=== PATIENT | female | born 1990 | race Caucasian/White ===

== ENCOUNTER 2019-03-08 12:15 | Emergency (ER) | payer MEDICAID, SELFPAY ==
--- NOTE | 2019-03-08 12:17 | NUR.NOTE ---
Nursing Note: pt states that her right food was stepped on by a cow on Friday morning. pt states that she limped it off at first and figured it would slowly get better however the pain has progressed. no notable swelling no bruising but increasing pain level PT can now only wear sandals that place no pressure on foot pain is localized to the first metatarsal
[2019-03-08 12:21] VITALS: BP 132/83; PULSE 80; RESP 16; TEMP 36.9; O2SAT 98
--- NOTE | 2019-03-08 12:25 | ED.GENADUL_ITS ---
Discharge Plan Disposition Patient Disposition: HOME Condition: Stable Discharge Details Chief Complaint: Orthopedic Clinical Impression: Foot injury Primary Care Provider: Ade Kerns ED Provider: Elba Engle Home Meds and New Rx's Prescriptions: Continued sertraline [Zoloft] 50 mg Tablet 50 mg PO DAILY RF: 0 Discharge Instructions Instructions: Contusion in Adults (ED) Additional Instructions: Please return immediately to the emergency department if you develop any new or worsening symptoms or if you become otherwise concerned. It is extremely important that you call as soon as possible to make an appointment to be seen in follow-up for this visit by your primary care doctor. Referrals: Ade Kerns [Primary Care Provider] - Discharge Data Discharge Date/Time-TO BE ENTERED AT DEPARTURE: 03/08/19 14:23 Medical Decision Making Nai Butler is a 29-year-old woman with a history of anxiety/depression who presented to the emergency department with 2 days of right foot pain after getting stepped on by a cow. On exam patient is very well and nontoxic appearing. She is able to range her toes, although has pain in her first toe with this. Tenderness over the first metatarsal of the right foot. Patient with full painless range of motion of the right ankle, right ankle nontender to palpation. Right heel nontender to palpation. Right lower leg is nontender to palpation. Good cap refill. Motor/sensation intact throughout the right foot. No edema of either extremity. Concern for fracture versus soft tissue injury. Exam/history is not consistent with DVT, bacterial infection, other acute emergent life/limb threatening illness. Plan for x-rays, ibuprofen. xrays negative. Plan for walking boot as patient with significant discomfort in normal footwear. Patient trialed walking boot in the emergency department with significant improvement in pain. I did correctional classification counselor the patient that she should use crutches and be weightbearing as tolerated until her symptoms improve or until she is seen in follow-up, patient states that she has crutches at home and will use them as needed. I had a lengthy discussion with the patient regarding return to emergency department precautions, importance of outpatient follow-up, home care. Patient verbalized understanding the plan was amenable. All questions were answered. Patient was discharged home with clear plan for outpatient follow-up. Medical Records Medical records reviewed: Yes I reviewed the patient's medical records. Imaging Data Radiologic Study: Attestation: I personally reviewed and interpreted this imaging study as follows: Radiologist's impression: RIGHT FOOT: Three views. No acute fracture or dislocation is seen. No radiopaque foreign bodies are seen in the soft tissues. IMPRESSION: No acute abnormality. HPI General Mode of arrival: ambulatory . Date/Time Provider Initiated Documentation: 03/08/19 12:25 . Limitations to Documentation: no limitations . Information obtained by: patient, RN notes reviewed and old records reviewed . HPI Narrative: Nai Butler is a 29-year-old woman with history of anxiety/depression presenting to the emergency department with foot pain. Patient reports that 2 days ago her right foot was stepped on by a cow. She has had pain in her right foot since that time. She denies any other injury or pain, also denies fevers shortness of breath/cough, vomiting/diarrhea, numbness/tingling/weakness, skin wound. Patient reports that she has been able to walk and bear weight while wearing cushioned sandals, but has not been able to bear weight while barefoot or wearing her usual work boots. Patient reports pain is over the medial top of her right foot. Feels otherwise well and in her usual state of health. Related Data Home Medications Medication Instructions Recorded Confirmed sertraline [Zoloft] 50 mg PO DAILY 03/08/19 03/08/19 Allergies Allergy/AdvReac Type Severity Reaction Status Date / Time venom-honey bee Allergy Unknown SWELLING,HI Unverified 03/08/19 12:24 VES General Stated Complaint: Orthopedic FRANCESCA: 3 Review of Systems Review of Systems Constitutional: denies fevers Eyes: denies eye pain ENT: denies facial pain, dental pain, sore throat Cardiovascular: denies chest pain, edema Respiratory: denies SOB, cough GI: denies abdominal pain, vomiting, diarrhea : denies flank pain MSK: denies back pain, neck pain, arthralgias, reports right foot pain Skin: denies rash Neuro: denies headaches, numbness, weakness PFSH Medical History Anxiety History of depression Migraine without aura Social History Smoking/Tobacco Use Status: Never Alcohol Intake: current Alcohol Intake frequency: a few times a month Alcohol type: beer and wine Drug use: Never Substance use type: does not use Do you feel safe at home: Yes Do you feel safe in your relationship?: Yes Exam Narrative Exam Narrative: Constitutional: well and [id number], pleasant, conversing normally HENT: head atraumatic/normocephalic/normal inspection, mucous membranes moist Eyes: conjunctiva normal, sclera normal, pupils 3mm b/l Neck: no stridor, normal ROM, trachea midline Resp: normal work of breathing Cardio: normal rate, normal rhythm Skin: warm, dry, normal color, no rash Neuro: alert, not altered, grossly non-focal, normal tone Ext: no edema, right foot TTP across dorsal aspect, worse over 1st MT, no overlying skin changes or wounds, right ankle with full painless ROM, normal ROM of right toes, no TTP of the right lower leg, brisk cap refill of right toes with normal sensation of the right foot throughout, normal exam of the left foot and lower leg. DP pulses intact and symmetric. Psych: normal mood, normal affect, normal behavior Course Vital Signs Temperature 36.9 C 03/08/19 12:21 Pulse 80 03/08/19 12:21 Respiratory Rate 16 03/08/19 12:21 Blood Pressure 132/83 03/08/19 12:21 Pulse Oximetry 98 03/08/19 12:21 Temperature 36.9 C 03/08/19 12:21 Temperature Source Tympanic 03/08/19 12:21 Pulse 80 03/08/19 12:21 Respiratory Rate 16 03/08/19 12:21 Blood Pressure 132/83 03/08/19 12:21 Blood Pressure Position Sitting 03/08/19 12:21 Pulse Oximetry 98 03/08/19 12:21 Oxygen Delivery Method Room Air 03/08/19 12:21 Oxygen Flow Rate 0 03/08/19 12:21 Pain Level 4 03/08/19 12:21
--- NOTE | 2019-03-08 12:31 | DI.RAD_ITS ---
SYMPTOMS/DIAGNOSIS: TRAUMA, PAIN OVER 1ST METATARSAL RIGHT FOOT: Three views. No acute fracture or dislocation is seen. No radiopaque foreign bodies are seen in the soft tissues. IMPRESSION: No acute abnormality.
[2019-03-08] MEDS: Ibuprofen 600 MG TAB (12:47)
[2019-03-08 13:40] VITALS: BP 132/83; PULSE 80; RESP 16; TEMP 36.9; O2SAT 98
== END 2019-03-08 14:23 | disposition home or self-care (01) ==
LOC: ER 13:42
PROVIDERS: Emergency Provider Student in an Organized Health Care Education/Training Program; PCP Nurse Practitioner
DX: S90.31XA Contusion of right foot, initial encounter (principal); W55.29XA Other contact with cow, initial encounter
CPT/HCPCS: 29515; 99283; 73630; L4361

== ENCOUNTER 2020-12-18 12:18 | Outpatient (REF) | payer MEDICAID, SELFPAY ==
--- NOTE | 2020-12-18 11:30 | PAPFT_PTH ---
PATIENT: Nai Butler LOC: [facility] U#:[id number] AGE/SX: 30/F ROOM: RE12/18/[address]: Cece Chan : 1990 BED: DIS: 12/18/2020 SPEC #: [id number] RECD: 12/19/20 12:59 STATUS: CLARENCE REDaysi #: [id number] JULIOCESAR: 12/18/20 11:[address]: Cece Chan DEPT: [facility] Cytology RECD BY: Maricel Juan ENTERED: 12/19/20 12:59 SP TYPE: PAPFT SARAHR DR: Ade Kerns Tissues: 1 - CX/ENDOCX FOR PAP SMEARS Procedures: PAP THIN PREP/UVM Screening HPV DNA PROBE Comments: [id number]
[2020-12-18 21:23] LABS: Abs Immature Grans 0.02 10^3/uL (0.0-0.06); Absolute Basophil Count 0.08 10^3/uL (0.0-0.2); Absolute Eosinophil Count 0.17 10^3/uL (0.0-0.7); Absolute Lymphocyte Count 3.34 10^3/uL (1.2-3.4); Absolute Monocyte Count 0.57 10^3/uL (0.1-0.8); Absolute Neutrophil Count 4.03 10^3/uL (1.2-6.7); Eosinophils % 2.1; HCT 38.7 % (36.0-46.0); HGB 13.1 g/dL (11.2-15.7); Immature Grans % 0.2; Lymphocytes % 40.7; MCH 29.5 pg (27.0-33.0); MCHC 33.9 % (32.0-36.0); MCV 87.2 fL (80-95); Monocytes % 6.9; Neutrophils % 49.1; Nucleated RBC 0 %; Platelet Count 344 10^3/uL (130-400); RBC 4.44 10^6/uL (3.93-5.22); RDW 11.9 % (11.7-14.6); RDW-SD 38.1 fL; WBC 8.21 10^3/uL (4.4-10.8)
[2020-12-18 21:34] LABS: Iron 109 ug/dL (50-170); Total Iron Binding Capacity 320 ug/dL (250-450); Transferrin Sat 34 % (15-50)
[2020-12-18 21:46] LABS: TSH (W/Ref FT4) 0.72 uIU/mL (0.36-3.74)
== END 2020-12-18 12:19 | disposition home or self-care (01) ==
LOC: NCHCN 12:18
PROVIDERS: PCP Nurse Practitioner; Visit Provider Nurse Practitioner Family
DX: M25.552 Pain in left hip (principal); R51.9 Headache, unspecified; N94.6 Dysmenorrhea, unspecified; K30 Functional dyspepsia; E66.3 Overweight; Z12.4 Encounter for screening for malignant neoplasm of cervix; Z01.419 Encounter for gynecological examination (general) (routine) without abnormal findings; Z11.51 Encounter for screening for human papillomavirus (HPV)
CPT/HCPCS: 88142; 83540; 83550; 84443; 85025; 87624

== ENCOUNTER → 2022-04-02 00:44 | Outpatient (CLI) | payer MEDICAID, SELFPAY ==
--- NOTE | 2022-04-02 12:15 | DI.MRI_ITS ---
Exam(s) MR BRAIN WO/W EXAM: MR BRAIN WO/W CLINICAL HISTORY: HEADACHE, R51. TECHNIQUE: Multiplanar multisequence MRI of the brain was performed. CONTRAST MATERIAL: IV Contrast: 15 ML of Dotarem contrast administered. COMPARISON: No exams were available for comparison FINDINGS: VENTRICLES AND EXTRA AXIAL SPACES: Normal in size and morphology for the patient's age. HEMORRHAGE: None. CEREBRAL PARENCHYMA: No focus of restricted diffusion to suggest acute infarct. No space-occupying le stveen identified. MIDLINE SHIFT: None. BRAINSTEM/CEREBELLUM: Normal. Orbits and pituitary: Unremarkable. ENHANCEMENT: No suspicious enhancement identified. VISUALIZED PARANASAL SINUSES/MASTOIDS: Clear. OTHER FINDINGS: None. IMPRESSION: Unremarkable MRI of the brain. DATA REPOSITORY:
[2022-04-02] MEDS: Normal Saline Flush 10 ML SYR IVP (12:19)
== END ==
PROVIDERS: PCP Nurse Practitioner; Visit Provider Nurse Practitioner Family
DX: R51.9 Headache, unspecified (principal)
CPT/HCPCS: 70553

== ENCOUNTER 2023-01-21 06:36 | Emergency (ER) | payer MEDICAID, SELFPAY ==
[2023-01-21 06:40] VITALS: BP 152/88; PULSE 91; RESP 18; TEMP 36.9; O2SAT 100
--- NOTE | 2023-01-21 07:00 | DI.CT_ITS ---
Exam(s) CT ABDOMEN PELVIS W EXAM: CT ABDOMEN PELVIS W CLINICAL HISTORY: rlq pain, r/o appe and ovarian cyst. TECHNIQUE: Imaging Protocol: Axial computed tomography images with coronal and sagittal reformatted images were created and reviewed CONTRAST MATERIAL: Intravenous: Omnipaque-350 100cc Oral: None COMPARISON: No exams were available for comparison FINDINGS: VISUALIZED LUNG BASES: No nodules nor pleural effusions evident. ABDOMEN: There is no ascites. LIVER: Tiny 3 millimeter hypodensity right hepatic lobe is probably a benign cyst or small hemangioma . No ominous appearing liver lesions evident. No dilated intrahepatic ducts. GALLBLADDER/BILIARY: No obvious gallbladder pathology. z PANCREAS: No evidence of pancreatic mass nor dilatation of the pancreatic duct. SPLEEN: Spleen is not enlarged. No obvious intrasplenic lesions. Splenic and portal veins are paten t. ADRENALS: There are no significant adrenal masses. KIDNEYS:No cysts evident. No solid renal masses. No calculi nor hydronephrosis.. ABDOMINAL AORTA: Abdominal aorta is not enlarged. LYMPH NODES:There is no retroperitoneal nor paraaortic adenopathy. ABDOMINAL WALL: No evidence of significant anterior abdominal wall nor inguinal hernia. GI: The diameter of the terminal ileum is prominent, measuring up to 2.4 cm. Possibly significant. PELVIS: GI: No evidence of appendicitis.No evidence of sigmoid diverticulitis. LYMPH NODES: There is no intrapelvic nor inguinal adenopathy. REPRODUCTIVE: There is an IUD in the anteverted uterus. This appears to be in satisfactory position. The ovaries are difficult to identify as separate structures among the multiple unopacified small b owel loops in the pelvis. However, there are no obvious ovarian masses and there is no free fluid. URINARY BLADDER: No calculi nor obvious masses evident OSSEOUS: No fractures and no significant osseous lesions. IMPRESSION: 1. No evidence of acute appendicitis. 2. No obvious ovarian abnormalities. Ovaries are difficult to identify among the numerous unopacifie d small bowel loops in both sides of the pelvis. IUD in place. 3. The diameter of the terminal ileum is prominent, measuring up to 2.4 cm. It does not exhibit an o bvious edematous wall. No regional lymphadenopathy evident. No free fluid. Correlation with any hi story of inflammatory bowel disease recommended. Discussed by phone with ER physician. RADIATION DOSE DELIVERED: 1,224.16mGy.cm Total DLP DATA REPOSITORY: All CT scans at this facility are submitted to the National Radiology Data Registry (NRDR) Dose Index Registry (DIR) with the [employer] (ACR). RADIATION OPTIMIZATION: All CT scans at this facility use at least one of these dose optimization te chniques: automated exposure control; mA and/or kV adjustment per patient size (includes targeted exa ms where dose is matched to clinical indication); or iterative reconstruction.
--- NOTE | 2023-01-21 07:13 | W.ED.GENAD ---
Discharge Plan Discharge Details Chief Complaint: Abd Prob Primary Care Provider: Cece Chan ED Provider: Mike Boyce Home Meds and New Rx's Prescriptions: No Action loratadine [Claritin] 10 mg tablet 10 mg PO DAILY fluticasone propionate [Flonase Allergy Relief] 50 mcg/actuation spray,suspension 2 spray intranasal DAILY Rx Instructions: administer into each nostril norethindrone ac-eth estradiol [Junel (21)] 1.5-30 mg-mcg tablet 1 tab PO DAILY Qty: 63 6RF sertraline [Zoloft] 50 mg Tablet 50 mg PO DAILY Medical Decision Making 32-year-old female with a past medical history of menstrual migraines, on dual hormonal control therapy of an IUD and oral contraceptives, also on Depakote for her migraine and Zoloft presents today for abdominal pain. Patient states that for the last 3 days she has been having right lower quadrant pain. 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 It persisted for 2 more days, and then this morning it was much worse than before, was not relieved by ibuprofen, and was now radiating to the left lower quadrant and flank on the left in addition to originating from the right lower quadrant. She describes it as achy with some stabbing components. She denies any fever or chills. She denies any vomiting or diarrhea. She denies any urinary complaints. She denies any vaginal discharge. No prior abdominal surgeries. She has had children before via vaginal delivery. She does not take any other additional medications. She has not had a period for years. She has never had anything like this before. No other complaints at this time. Exam demonstrates right lower quadrant tenderness, no guarding or rebound. Pain at McBurney's point. Also mild left lower quadrant tenderness as well. Differential includes ovarian cyst, appendicitis, less likely endometriosis. We will get a CT scan, rehydrate, monitor closely and reassess. Patient does not want anything for pain at this time. Patient will be signed out to my colleagues for follow-up on labs and imaging HPI General Date/Time Provider Initiated Documentation: 01/21/23 06:47. HPI Narrative: 32-year-old female with a past medical history of menstrual migraines, on dual hormonal control therapy of an IUD and oral contraceptives, also on Depakote for her migraine and Zoloft presents today for abdominal pain. Patient states that for the last 3 days she has been having right lower quadrant pain. 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 It persisted for 2 more days, and then this morning it was much worse than before, was not relieved by ibuprofen, and was now radiating to the left lower quadrant and flank on the left in addition to originating from the right lower quadrant. She describes it as achy with some stabbing components. She denies any fever or chills. She denies any vomiting or diarrhea. She denies any urinary complaints. She denies any vaginal discharge. No prior abdominal surgeries. She has had children before via vaginal delivery. She does not take any other additional medications. She has not had a period for years. She has never had anything like this before. No other complaints at this time. Related Data Home Medications Medication Instructions Recorded Confirmed sertraline 50 mg tablet (Zoloft) 50 mg PO DAILY 03/08/19 03/08/19 fluticasone propionate 50 2 spray intranasal DAILY 01/15/21 mcg/actuation nasal spray,suspension (Flonase Allergy Relief) loratadine 10 mg tablet (Claritin) 10 mg PO DAILY 01/15/21 norethindrone acetate 1.5 1 tab PO DAILY #63 tabs 01/15/21 01/15/21 mg-ethinyl estradiol 30 mcg tablet () Previous Rx's Medication Instructions Recorded norethindrone acetate 1.5 1 tab PO DAILY #63 tabs 01/15/21 mg-ethinyl estradiol 30 mcg tablet () Allergies Allergy/AdvReac Type Severity Reaction Status Date / Time venom-honey bee Allergy Unknown SWELLING,HI Verified 04/16/21 11:05 VES General Stated Complaint: Abd Prob FRANCESCA: 3 Review of Systems All systems reviewed & are unremarkable except as noted in HPI and below PFSH All Active Problems Menorrhagia with irregular cycle (Acute) Medical History History of depression Family History Maternal Grandmother Breast cancer Social History Smoking/Tobacco Use Status: Never Smoking risk assessment performed?: Yes Alcohol Intake: current Alcohol Intake frequency: a few times a month Alcohol type: beer and wine Drug use: Never Substance use type: does not use Do you feel safe at home: Yes Do you feel safe in your relationship?: Yes History History 2 Para 2 Hx # Term Pregnancies Multiple births Hx # Pregnancies Ectopic pregnancies AB induced Hx Number of Living Children AB spontaneous Exam Narrative Exam Narrative: 1.Const: Well-nourished, Well-developed, appearing stated age 2.Eyes: PERRL, no conjunctival injection, and symmetrical lids. 3.ENT: Atraumatic external nose and ears. Moist MM. Neck: Symmetric, trachea midline, No thyromegaly. 4.CVS: +S1/S2, No murmurs or gallops. Peripheral pulses 2+ and equal in all extremities. Brisk capillary refill in all extremities. 5.RESP: Unlabored respiratory effort. Clear to auscultation bilaterally. No wheezes rales or rhonchi 6.GI: Soft, nondistended. No guarding or rebound. Pain is present in the right lower quadrant at McBurney's point. Negative Umana sign. No flank or CVA tenderness. Mild left lower quadrant tenderness. Negative Rovsing sign. Negative heel strike test. Negative obturator and psoas sign. 7.MSK: Normocephalic/Atraumatic, Extremities w/o deformity or ttp No cyanosis or clubbing, Normal movement of all extremities 8.Skin: Warm, Dry. No rashes or lesions. 9.Neuro: order processor II-XII grossly intact. Sensation grossly intact, no focal neurologic deficits. 10.Psych: (AAO) x3. Appropriate mood and affect Course Vital Signs Vital signs: Vital Signs Temperature 36.9 C 01/21/23 06:40 Pulse 91 H 01/21/23 06:40 Respiratory Rate 18 01/21/23 06:40 Blood Pressure 152/88 H 01/21/23 06:40 Pulse Oximetry 100 01/21/23 06:40 Temperature 36.9 C 01/21/23 06:40 Temperature Source Oral 01/21/23 06:40 Pulse 91 H 01/21/23 06:40 Respiratory Rate 18 01/21/23 06:40 Respiratory Effort Normal, Non-Labored 01/21/23 06:46 Blood Pressure 152/88 H 01/21/23 06:40 Pulse Oximetry 100 01/21/23 06:40 Oxygen Delivery Method Room Air 01/21/23 06:40 Oxygen Flow Rate 0 01/21/23 06:40 Pain Level 5 01/21/23 06:40 Lab/Test Results Lab/Test Results: POC- Test(urine) Negative
[2023-01-21 07:28] LABS: Lactate 1.9 mmol/L (0.6-1.4)
[2023-01-21 07:30] LABS: Abs Immature Grans 0.02 10^3/uL (0.0-0.06); Absolute Basophil Count 0.07 10^3/uL (0.0-0.2); Absolute Eosinophil Count 0.28 10^3/uL (0.0-0.7); Absolute Lymphocyte Count 3.05 10^3/uL (1.2-3.4); Absolute Monocyte Count 0.59 10^3/uL (0.1-0.8); Absolute Neutrophil Count 3.23 10^3/uL (1.2-6.7); Eosinophils % 3.9; HCT 40.7 % (36.0-46.0); HGB 13.7 g/dL (11.2-15.7); Immature Grans % 0.3; Lymphocytes % 42.1; MCHC 33.7 % (32.0-36.0); MCV 86 fL (80-95); MPV 9.5 fL (8.0-11.0); Monocytes % 8.1; Neutrophils % 44.6; Platelet Count 322 10^3/uL (130-400); RBC 4.73 10^6/uL (3.93-5.22); RDW 12.6 % (11.7-14.6); RDW-SD 39.4 fL; WBC 7.24 10^3/uL (4.4-10.8)
[2023-01-21] MEDS: Normal Saline 1,000 ML 1000 ML IV (07:32)
[2023-01-21 07:42] LABS: Bilirubin Negative (Negative); Blood Trace-intact (Negative); Clarity Clear (Clear); Glucose Negative (Negative); Ketones Negative (Negative); Leukocyte Esterase Trace (Negative); Nitrite Negative (Negative); Urobilinogen 0.2 mg/dL (Up to 0.2)
[2023-01-21 07:46] LABS: ALT 23 U/L (14-59); AST 17 U/L (15-37); Albumin 3.5 g/dL (3.4-5.0); Alkaline Phosphatase 52 U/L (46-116); Anion Gap 9.9 mmol/L (3-11); BUN 16 mg/dL (7-18); Bilirubin, Total 0.4 mg/dL (0.2-1.0); CO2 25.1 mmol/L (21.0-32.0); CREATININE 0.8 mg/dL (0.55-1.02); Calcium 8.3 mg/dL (8.5-10.1); Chloride 106 mmol/L (98-107); Estimated GFR 99.09 (mL/min/1.73m2); Glucose 89 mg/dL (74-106); Potassium 3.6 mmol/L (3.5-5.1); Sodium 141 mmol/L (136-145); Total Protein 7.4 g/dL (6.4-8.2)
[2023-01-21 07:49] LABS: Bacteria Rare HPF (Negative); C & S Indicated? Yes; Casts Negative LPF (Negative); Crystals Negative HPF (Negative); Epithelial Cells Few HPF (Negative); Mucus Negative (Negative); RBC 0-2 HPF (0-2); WBC 0-2 HPF (0-5)
--- NOTE | 2023-01-21 08:15 | ED.PROG_ITS ---
Date of service: 01/21/23 Time of Service: 08:15 Medical Decision Making I received signout on this 32-year-old female with a right lower quadrant pain pending a CT scan. CBC lacks anemia thrombocytopenia and leukocytosis. She did have a mildly elevated lactate. She has a reassuring comprehensive metabolic p eliane with very mild hypocalcemia. Her urinalysis is nitrite negative and reassuring against infection. She had declined analgesia. We will follow-up following CT scan. 8:55 AM I met with the patient after receiving a call from radiology with notification that she had a mildly dilated terminal ileum at 2.4 cm but no signs of ovarian pathology nor any pelvic free fluid nor any appendicitis. Patient had endorsed several days of worsening primarily right lower quadrant abdominal pain but no fevers diarrhea nor vomiting. We will touch base with general surgery. Patient has no personal history nor is there any family history of inflammatory bowel disease and patient specifically denies Crohn's and ulcerative colitis. 8:55 AM I spoke with Heather from the OR who was with Dr. Suarez. I have asked Dr. Suarez to review the patient's CT scan. 10:07 AM I spoke with Dr. Suarez from general surgery who had reviewed the patient's CT scan. She advised close outpatient surgical follow-up for likely colonoscopy given terminal ileal dilation. She also advised 24 hours of clear liquid diet and progressing to a low fiber diet for the next several days as there is a possibility that the patient's symptoms could represent enteritis. We will ensure that she passes a trial of clears in the ED and discharged with outpatient surgical follow-up for which I have asked health mental health unit lead psychologist Umang lloyd to arrange. Patient denies discussed whether or not she could have ovarian torsion. Given no abnormalities on CT of her ovaries my suspicion was lower for torsion. Given her abnormal terminal ileum overlying the area of her symptoms I felt that this is the most likely culprit. I offered the patient an ultrasound nonetheless of her ovaries. She declined. I advised ED return if she developed any fevers or worsening pain. Sign Out Sign Out Data: Sign Out Comment: Right lower quadrant pain, follow-up on labs and imaging Last updated by Mike Boyce DO at 01/21/23 07:33 Discharge Plan Disposition Patient Disposition: Home Discharge Details Clinical Impression: Abnormal computed tomography of cecum and terminal ileum, Acute right lower quadrant pain Primary Care Provider: Cece Chan ED Provider: Aravind Galdamez Home Meds and New Rx's Prescriptions: Continued loratadine [Claritin] 10 mg tablet 10 mg PO DAILY fluticasone propionate [Flonase Allergy Relief] 50 mcg/actuation spray,suspension 2 spray intranasal DAILY Rx Instructions: administer into each nostril norethindrone ac-eth estradiol [June ()] 1.5-30 mg-mcg tablet 1 tab PO DAILY Qty: 63 6RF sertraline [Zoloft] 50 mg Tablet 50 mg PO DAILY Discharge Instructions Instructions: Low Fiber Diet (ED), Clear Liquid Diet (ED) Additional Instructions: You are seen in the emergency department for your abdominal pain. As we discussed, your CT scan showed a mildly enlarged terminal ileum which is the end of your small intestines. The general surgery team advised you to follow a clear liquid diet for the next 24 hours. Starting tomorrow morning you may proceed to a low fiber diet for the next several days. The general surgery clinic will call you for follow-up as you will likely benefit from a colonoscopy. As we discussed, if you develop fevers worsening pain nausea vomiting or diarrhea that does not stop please return to the emergency department.
[2023-01-21] MEDS: Normal Saline Flush 10 ML SYR IJ (08:18)
[2023-01-21] MEDS: Omnipaque 350 MG/ML 500 ML BTL-Imaging package 100 ML IJ (08:20)
[2023-01-21] MEDS: Normal Saline - Diluent 50 ML VIAL IJ (08:20)
--- NOTE | 2023-01-21 12:49 | NUR.NOTE ---
Nursing Note: Referral faxed to General Surgery for abd pain, needs colonoscopy, Dr. Suarez consulted/ later this week.
--- NOTE | 2023-01-21 13:48 | NUR.NOTE ---
Nursing Note: Referral faxed to General Surgery for abd pain, needs colonoscopy to be seen later this week. Consulted with Dr. Suarez.
== END 2023-01-21 10:56 | disposition home or self-care (01) ==
PROVIDERS: Student in an Organized Health Care Education/Training Program; Emergency Provider Emergency Medicine; PCP Nurse Practitioner Family
DX: R93.3 Abnormal findings on diagnostic imaging of other parts of digestive tract (principal); R10.31 Right lower quadrant pain
CPT/HCPCS: 80053; 81025; 96360; 96361; 99285; 74177; 81003; 81015; 83605; 85025; 87086; 99284

== ENCOUNTER 2023-09-25 10:53 | Outpatient (REF) | payer MEDICAID, SELFPAY ==
[2023-09-25 15:06] LABS: HCT 39.8 % (36.0-46.0); HGB 13.8 g/dL (11.2-15.7); MCH 29.6 pg (27.0-33.0); MCHC 34.7 % (32.0-36.0); MCV 85 fL (80-95); MPV 10.1 fL (8.0-11.0); Platelet Count 390 10^3/uL (130-400); RBC 4.67 10^6/uL (3.93-5.22); RDW 12.7 % (11.7-14.6); RDW-SD 39.3 fL
[2023-09-25 15:39] LABS: ALT 26 U/L (14-59); AST 19 U/L (15-37); Albumin 3.5 g/dL (3.4-5.0); Alkaline Phosphatase 48 U/L (46-116); Anion Gap 12.3 mmol/L (3-11); BUN 15 mg/dL (7-18); Bilirubin, Total 0.2 mg/dL (0.2-1.0); CO2 22.7 mmol/L (21.0-32.0); CREATININE 0.8 mg/dL (0.55-1.02); Calcium 8.7 mg/dL (8.5-10.1); Calculated LDL 98 mg/dL (<100); Chloride 104 mmol/L (98-107); Cholesterol 200 mg/dL (<200); Estimated GFR 98.48 (mL/min/1.73m2); Glucose 110 mg/dL (74-106); HDL Cholesterol 42 mg/dL (40-60); Potassium 3.9 mmol/L (3.5-5.1); Sodium 139 mmol/L (136-145); TSH (W/Ref FT4) 0.91 uIU/mL (0.36-3.74); Total Protein 7.5 g/dL (6.4-8.2); Triglyceride 301 mg/dL (<150)
== END 2023-09-25 10:54 | disposition home or self-care (01) ==
LOC: NCHCN 10:53
PROVIDERS: PCP Nurse Practitioner Family; Visit Provider Family Medicine
DX: R53.83 Other fatigue (principal); R63.5 Abnormal weight gain; E78.1 Pure hyperglyceridemia
CPT/HCPCS: 80053; 80061; 85027; 84443

== ENCOUNTER 2025-03-03 16:28 | Outpatient (REF) | payer MEDICAID, SELFPAY ==
[2025-03-03 19:27] LABS: HCT 39.9 % (36.0-46.0); HGB 13.5 g/dL (11.2-15.7); MCH 29.3 pg (27.0-33.0); MCHC 33.8 % (32.0-36.0); MCV 87 fL (80-95); MPV 10.2 fL (8.0-11.0); Platelet Count 315 10^3/uL (130-400); RBC 4.61 10^6/uL (3.93-5.22); RDW 12.2 % (11.7-14.6); RDW-SD 38.5 fL; WBC 6.19 10^3/uL (4.4-10.8)
[2025-03-03 19:30] LABS: ESR 6 mm/hr (0-20)
[2025-03-03 19:40] LABS: ALT 18 U/L (14-59); AST 17 U/L (15-37); Albumin 4.1 g/dL (3.4-5.0); Alkaline Phosphatase 67 U/L (46-116); Anion Gap 9.0 mmol/L (3-11); BUN 8 mg/dL (7-18); Bilirubin, Total 0.3 mg/dL (0.2-1.0); CO2 27.0 mmol/L (21.0-32.0); Calcium 8.6 mg/dL (8.5-10.1); Chloride 106 mmol/L (98-107); Estimated GFR 119.23 (mL/min/1.73m2); Glucose 80 mg/dL (74-106); Potassium 4.2 mmol/L (3.5-5.1); Sodium 142 mmol/L (136-145); Total Protein 7.3 g/dL (6.4-8.2)
[2025-03-03 19:41] LABS: C-Reactive Protein < 0.50 mg/dL (<or=0.5)
[2025-03-07 11:06] LABS: Lyme Ab w Rflx to Lyme Confirm Negative (Negative)
[2025-03-07 16:01] LABS: B. miyamotoi PCR Negative (Negative); Babesia divergens/MO-1 Negative (Negative); Ehrlichia muris eauclairensis Negative (Negative)
== END 2025-03-03 16:29 | disposition home or self-care (01) ==
LOC: NCHCN 16:28
PROVIDERS: PCP Nurse Practitioner Family; Visit Provider Family Medicine
DX: R53.83 Other fatigue (principal); M25.59 Pain in other specified joint
CPT/HCPCS: 80053; 85027; 85652; 87798; 86038; 86140; 86431; 86618